=== PATIENT | female | born 1950 | race Caucasian/White ===

== ENCOUNTER 2018-01-16 09:11 | Outpatient (CLI) | payer OTHER ==
[~2018-01-16 09:11] MED LIST: ALBUTEROL17 G1; FLOVENT13 G1; IBUPROFEN800 MG PO; KETO10TA2 PO; MEDROLPACK PO; NAPROXEN500 MG; ORPH100T PO; TAMS0.4C PO; ZOFRAN4 MG PO
== END 2018-01-16 09:14 | disposition home or self-care (01) ==
LOC: MAMO-SONO 09:11
DX: Z12.31 Encounter for screening mammogram for malignant neoplasm of breast (principal); Z87.898 Personal history of other specified conditions; N60.11 Diffuse cystic mastopathy of right breast; N60.12 Diffuse cystic mastopathy of left breast

== ENCOUNTER 2018-05-24 15:27 | Emergency (ER) | payer OTHER ==
[~2018-05-24] VITALS: Ht 152.4 cm; Wt 93.4 kg
[2018-05-24] MEDS ORDERED: COZAAR25 MG (15:46)
[2018-05-24] MEDS ORDERED: ZOCOR5 MG (15:47)
[2018-05-24] MEDS ORDERED: SINGULAIR5 MG (15:47)
== END 2018-05-24 19:43 | disposition home or self-care (01) ==
LOC: ER 15:27
DX: N20.1 Calculus of ureter (principal)

== ENCOUNTER 2018-08-31 12:36 | Emergency (ER) | payer OTHER ==
[~2018-08-31] VITALS: Ht 152.4 cm; Wt 92.5 kg
[~2018-08-31 12:36] MED LIST changes: +COZAAR25 MG; +SINGULAIR5 MG; +ZOCOR5 MG
[2018-08-31] MEDS ORDERED: NIFE60TA3 (12:47)
[2018-09-01] MEDS ORDERED: KETO10TA2 PO (02:26)
== END 2018-09-01 02:43 | disposition home or self-care (01) ==
LOC: ER 12:36
DX: N20.1 Calculus of ureter (principal)

== ENCOUNTER 2018-09-09 08:39 | Outpatient (CLI) | payer OTHER ==
[~2018-09-09 08:39] MED LIST changes: +NIFE60TA3
== END 2018-09-09 08:46 | disposition home or self-care (01) ==
LOC: RAD 501 08:39
DX: N20.1 Calculus of ureter (principal)

== ENCOUNTER 2018-09-16 08:42 | Outpatient (CLI) | payer OTHER | END 2018-09-16 14:23 | disposition home or self-care (01) | LOC: RAD 501 08:42 | DX: N20.1 Calculus of ureter (principal) ==

== ENCOUNTER 2018-09-30 13:09 | Outpatient (CLI) | payer OTHER ==
[2018-09-30] MEDS ORDERED: SINGULAIR10 MG PO (17:28)
[2018-09-30] MEDS ORDERED: NAPROXEN500 MG PO (17:29)
[2018-09-30] MEDS ORDERED: NIFE60TA3 PO (17:34)
== END 2018-09-30 13:19 | disposition home or self-care (01) ==
LOC: RAD 501 13:09
DX: N20.1 Calculus of ureter (principal)

== ENCOUNTER 2018-10-02 09:17 | Day surgery (SDC) | payer OTHER ==
[~2018-10-02 09:17] MED LIST changes: +NAPROXEN500 MG PO; +NIFE60TA3 PO; +SINGULAIR10 MG PO
== END 2018-10-02 15:45 | disposition home or self-care (01) ==
LOC: CIR.AMB 09:17
DX: N20.1 Calculus of ureter (principal)

== ENCOUNTER → 2018-10-11 | Outpatient (CLI) | payer OTHER | END | disposition home or self-care (01) | LOC: RAD 501 08:42 | DX: N20.1 Calculus of ureter (principal) ==

== ENCOUNTER 2018-11-08 11:01 | Outpatient (CLI) | payer OTHER | END 2018-11-08 11:06 | disposition home or self-care (01) | LOC: RAD 501 11:01 | DX: I11.9 Hypertensive heart disease without heart failure (principal); R06.2 Wheezing ==

== ENCOUNTER → 2018-12-18 09:59 | Outpatient (CLI) | payer OTHER | END | disposition home or self-care (01) | LOC: LAB 09:59 | DX: N20.1 Calculus of ureter (principal) ==

== ENCOUNTER 2018-12-20 10:22 | Outpatient (CLI) | payer OTHER | END 2018-12-20 15:00 | disposition home or self-care (01) | LOC: LAB 10:22 | DX: N20.1 Calculus of ureter (principal) ==

== ENCOUNTER 2018-12-25 10:35 | Outpatient (CLI) | payer OTHER | END 2018-12-25 10:40 | disposition home or self-care (01) | LOC: LAB 10:35 | DX: N20.1 Calculus of ureter (principal) ==

== ENCOUNTER → 2019-01-16 | Outpatient (CLI) | payer OTHER | END | disposition home or self-care (01) | LOC: MAMO-SONO 09:11 | DX: Z12.31 Encounter for screening mammogram for malignant neoplasm of breast (principal); Z87.898 Personal history of other specified conditions; C50.919 Malignant neoplasm of unspecified site of unspecified female breast; N63.10 Unspecified lump in the right breast, unspecified quadrant; N63.20 Unspecified lump in the left breast, unspecified quadrant; N64.4 Mastodynia; N60.12 Diffuse cystic mastopathy of left breast; N60.11 Diffuse cystic mastopathy of right breast ==

== ENCOUNTER 2019-02-27 09:51 | Outpatient (CLI) | payer OTHER | END 2019-02-27 10:01 | disposition home or self-care (01) | LOC: LAB 09:51 | DX: N20.1 Calculus of ureter (principal); N20.0 Calculus of kidney; D68.8 Other specified coagulation defects; E03.8 Other specified hypothyroidism; E21.2 Other hyperparathyroidism ==

== ENCOUNTER 2020-12-29 13:33 | Emergency (ER) | payer OTHER ==
[~2020-12-29] VITALS: Ht 177.8 cm; Wt 90.7 kg
[2020-12-29] MEDS ORDERED: SIMVASTATIN5 MG PO (13:41)
[2020-12-29] MEDS ORDERED: MEDI-MECLIZINE25 MG PO (17:20)
== END 2020-12-29 17:37 | disposition home or self-care (01) ==
LOC: ER 13:33
DX: R42 Dizziness and giddiness (principal); R11.2 Nausea with vomiting, unspecified

== ENCOUNTER 2021-08-02 12:54 | Emergency (ER) | payer OTHER ==
[~2021-08-02] VITALS: Ht 152.4 cm; Wt 85.7 kg
[~2021-08-02 12:54] MED LIST changes: +MEDI-MECLIZINE25 MG PO; +SIMVASTATIN5 MG PO
[2021-08-02] MEDS ORDERED: FLOVENT DISKUS50 MCG (13:12)
[2021-08-02] MEDS ORDERED: PEPCID AC20 MG (13:12)
== END 2021-08-02 20:03 | disposition home or self-care (01) ==
LOC: ER 12:54
DX: K62.5 Hemorrhage of anus and rectum (principal); R10.84 Generalized abdominal pain; I10 Essential (primary) hypertension; Z88.0 Allergy status to penicillin

== ENCOUNTER 2021-09-23 08:34 | Outpatient (CLI) | payer OTHER ==
[~2021-09-23 08:34] MED LIST changes: +FLOVENT DISKUS50 MCG; +PEPCID AC20 MG
== END 2021-09-23 13:24 | disposition home or self-care (01) ==
LOC: RX STUDY 08:34
PROVIDERS: ATTEND Otolaryngology
DX: R13.10 Dysphagia, unspecified (principal)

== ENCOUNTER 2025-03-24 10:28 | Outpatient (CLI) | payer OTHER | END 2025-03-24 10:32 | disposition home or self-care (01) | LOC: NUCLEAR 10:28 | PROVIDERS: ATTEND Internal Medicine Cardiovascular Disease | DX: I10 Essential (primary) hypertension (principal) ==